=== PATIENT | male | born 1960 | race Caucasian/White ===

== ENCOUNTER 2019-06-24 17:21 | Emergency (ER) | payer BC, OTHER ==
[2019-06-24 17:32] VITALS: BP 122/59; PULSE 70
[2019-06-24] MEDS: Sodium Chloride 0.9% 10 ML Syringe FLUSH PRN ×2 (17:56→19:03)
[2019-06-24] MEDS ORDERED: Ondansetron 4 MG/2 ML SDV IVPUSH ONE (18:04)
[2019-06-24] MEDS ORDERED: Sodium Chloride 0.9% 1,000 ML IV SCH (18:15)
[2019-06-24] MEDS ORDERED: Diatrizoate Meglumine/Diatrizoate Sodium 37% 120 ML Bottle PO ONE (18:43)
[2019-06-24] MEDS ORDERED: Iopamidol 612 MG/ML 100 ML Bottle IVPUSH ONE (18:43)
--- NOTE | 2019-06-24 19:17 | EDM.PDOC ---
<Rob Salazar Jo - Last Filed: 06/24/19 19:26> ED HPI GENERAL MEDICAL PROBLEM - General Chief Complaint: Gastrointestinal Problem Stated Complaint: BOWEL ISSUES SENT BY [facility] Time Seen by Provider: 06/24/19 17:26 Source of Information: Reports: Patient, RN Notes Reviewed - History of Present Illness INITIAL COMMENTS - FREE TEXT/NARRATIVE: 59-year-old male was been sent here from [facility] for further evaluation of abdominal pain, bloating with concern for possible bowel obstruction or partial bowel obstruction. He states he became ill Saturday 3 days ago. Onset of abdominal pain, cramping and multiple episodes of watery diarrhea. Since that time he has had intermittent abdominal pain and cramping, no appetite, eating and drinking small amounts only. He feels like he is been bloated with abdominal distention, belching of gas and has been passing in his words "small amounts of gas occasionally" he had labs drawn at [facility] this afternoon and he had x-rays done at [facility]. Those x-rays are present on our PACs which I have reviewed and discussed with his provider at the [facility]. Showed a very large amount of gaseous distention left abdomen especially raising and supporting concern for possible bowel obstruction. Was suggested that he come here to the ED for further evaluation. On arrival to ED he is having mild continued cramping and discomfort. Nauseated at this time and has not been vomiting. There's been no chest pain, difficulty breathing, coughing, fever or chills. 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 That was around 7 years ago. He has had no prior abdominal surgeries. Abdomen Pain Score (Numeric/FACES): 2 - Related Data Allergies Allergy/AdvReac Type Severity Reaction Status Date / Time onion Allergy Indigestion Verified 06/24/19 17:32 Penicillins Allergy Other Verified 06/24/19 17:32 Home Meds: Home Meds Ascorbic Acid [Vitamin C] 1,000 mg PO DAILY 06/24/19 [History] Aspirin 81 mg PO DAILY 06/24/19 [History] Cholecalciferol (Vitamin D3) [Vitamin D3] 5,000 unit PO DAILY 06/24/19 [History] Dicyclomine [Bentyl] 20 mg PO Q6H PRN #5 tablet 06/24/19 [Rx] Multivit-Minerals/Herbal 121 [Urinozinc Prostate Formula Cap] 1 cap PO DAILY [History] Multivitamin [Multivitamins] 1 cap PO DAILY 06/24/19 [History] Past Medical History HEENT History: Reports: Impaired Vision Respiratory History: Reports: Sleep Apnea Genitourinary History: Reports: BPH Musculoskeletal History: Reports: Other (See Below) Other Musculoskeletal History: rib fx Neurological History: Reports: Vertigo - Infectious Disease History Infectious Disease History: Reports: Chicken Pox, Shingles - Past Surgical History HEENT Surgical History: Reports: Oral Surgery Cardiovascular Surgical History: Reports: Valve Replacement Social & Family History - Tobacco Use Smoking Status *Q: Never Smoker - Recreational Drug Use Recreational Drug Use: No ED ROS GENERAL - Review of Systems Review Of Systems: See Below Constitutional: Denies: Fever, Chills, Diaphoresis HEENT: Denies: Throat Pain Respiratory: Denies: Shortness of Breath, Pleuritic Chest Pain Cardiovascular: Denies: Chest Pain GI/Abdominal: Reports: Abdominal Pain, Diarrhea, Decreased Appetite, Nausea ( Mild occasional). Denies: Hematochezia, Melena, Vomiting Musculoskeletal: Denies: Back Pain Skin: Reports: No Symptoms Neurological: Reports: No Symptoms ED EXAM, GI/ABD - Physical Exam Exam: See Below Exam Limited By: No Limitations General Appearance: Alert, No Apparent Distress (At time of exam) Eyes: Bilateral: Normal Appearance Throat/Mouth: Normal Inspection, Normal Oropharynx Neck: Normal Inspection, Supple Respiratory/Chest: No Respiratory Distress, Lungs Clear, Normal Breath Sounds Cardiovascular: Regular Rate, Rhythm GI/Abdominal Exam: Distended (Moderate distention upper and midabdomen), Tender (There is diffuse tenderness of his abdomen more so mid and on the left, right lower abdomen nontender.). No: Guarding ( At time of exam no guarding or rebound), Rebound Extremities: Normal Inspection, Normal Range of Motion Neurological: Alert, Oriented, No Motor/Sensory Deficits Skin Exam: Warm, Dry, Normal Color Course - Vital Signs Last Recorded V/S: Last Vital Signs Temp 36.5 C 06/24/19 17:28 Pulse 70 06/24/19 17:28 Resp 19 06/24/19 17:28 BP 122/59 L 06/24/19 17:28 Pulse Ox 100 06/24/19 17:28 - Orders/Labs/Meds Orders: Active Orders 24 hr Category Date Time Status Peripheral IV Care [RC] . DIRECTED Care 06/24/19 17:52 Active Sodium Chloride 0.9% [Normal Saline] 1,000 ml Med 06/24/19 18:15 Active IV ONETIME Sodium Chloride 0.9% [Saline Flush] Med 06/24/19 17:50 Active 10 ml FLUSH ASDIRECTED PRN Peripheral IV Insertion Adult [OM.PC] Stat Oth 06/24/19 17:50 Ordered Medication Orders Sodium Chloride (Normal Saline) 1,000 mls @ 999 mls/hr IV ONETIME ROMANA Last Admin: 06/24/19 18:17 Dose: 999 mls/hr Sodium Chloride (Saline Flush) 10 ml FLUSH ASDIRECTED PRN PRN Reason: Keep Vein Open Last Admin: 06/24/19 19:03 Dose: 10 ml Admin: 06/24/19 17:56 Dose: 10 ml Labs: Laboratory Tests 06/24/19 Range/Units 15:00 C-Reactive Protein 1.0 (<1.0) mg/dL Lipase 131 (73-393) U/L Meds: Medications Generic Name Dose Route Start Last Admin Trade Name Freq PRN Reason Stop Dose Admin Sodium Chloride 1,000 mls @ 999 mls/hr 06/24/19 18:15 06/24/19 18:17 Normal Saline IV 999 mls/hr ONETIME ROMANA Administration Sodium Chloride 10 ml 06/24/19 17:50 06/24/19 19:03 Saline Flush FLUSH 10 ml ASDIRECTED PRN Administration Keep Vein Open Discontinued Medications Generic Name Dose Route Start Last Admin Trade Name Freq PRN Reason Stop Dose Admin Diatrizoate Meglum/Diatrizoate Sod 120 ml 06/24/19 18:43 06/24/19 19:02 Gastrografin 37% PO 06/24/19 18:44 120 ml ONETIME ONE Administration Dicyclomine HCl 20 mg 06/24/19 20:22 Bentyl PO 06/24/19 20:23 ONETIME ONE Iopamidol 100 ml 06/24/19 18:43 06/24/19 19:04 Isovue-300 (61%) IVPUSH 06/24/19 18:44 100 ml ONETIME ONE Administration Magnesium Citrate 210 ml 06/24/19 20:23 Citrate Of Magnesia PO 06/24/19 20:24 ONETIME ONE Metoclopramide HCl 10 mg 06/24/19 20:23 Reglan .XX 06/24/19 20:24 ONETIME ONE Metoclopramide HCl 10 mg 06/24/19 20:26 Reglan PO 06/24/19 20:27 ONETIME ONE Ondansetron HCl 4 mg 06/24/19 18:04 06/24/19 18:17 Zofran IVPUSH 06/24/19 18:05 4 mg ONETIME ONE Administration - Re-Assessments/Exams Free Text/Narrative Re-Assessment/Exam: 06/24/19 19:26 Change of shift, will transfer care to Dr Trammell. CT has been done, awaiting Radiology report. Departure - Departure Disposition: Home, Self-Care Clinical Impression: Constipation by delayed colonic transit, Acute dilatation of the colon syndrome - Discharge Information Prescriptions: Dicyclomine [Bentyl] 20 mg PO Q6H PRN #5 tablet PRN Reason: Abdominal cramps/diarrhea Instructions: Constipation, Adult, [id number] Referrals: Gabby Jerez PA-C [Primary Care Provider] - Forms: ED Department Discharge Additional Instructions: Evaluation the emergency room today in regards to obviously dilated abdomen which she reports is been going on for about 3 days. Turn from your provider in was that she may have a bowel obstruction. However you are having good bowel movements to cure on Saturday. You are still passing gas but not as normally as you should. Been somewhat afraid to eat due to a sense of fullness. A cyst x- ray of the abdomen shows a large amount of stool throughout the right colon and a large amount of air throughout the transverse colon across the upper abdomen and portions of most of the descending: The left hemiabdomen. A CT scan was done in the ED with oral and IV contrast and reveals basically the same thing. Appears to be a slightly narrowed area in the area of the descending colon which is holding up the gas in the rest of the bowel. The cause for this is unclear. It deserves further investigation. Unable to eat and drink it is my suggestion you stay on clear fluids such as Gatorade/Powerade, apple juice and clear fluids almost in preparation for colonoscopy. The contrast that you were given in the ED will likely cause her bowels to move a once or twice over the next 6-12 hours. In the morning I wish you to take 7 ounces of magnesium citrate by mouth with 6 ounces of juice of choice which would get the bowels working even further in a period of 2-3 hours. May use Bentyl 20 mg tablet every 6 hours if needed for relief of abdominal cramping pain. In the ED were given a tablet called Reglan 10 mg which is to promote bowel movement you to call [facility] and make an appointment to see Dr. Montez--surgeon Saturday. I discussed the case with her. These provide that information to the air crew has to provide you with an appointment for Saturday. She would prefer Saturday if available. Please phone [phone] tomorrow morning to arrange this appointment. Need to return to the ED if he develops severe abdominal pain or nausea and vomiting. Sepsis Event Note - Evaluation Sepsis Screening Result: No Definite Risk - Focused Exam Vital Signs: Vital Signs Temp Pulse Resp BP Pulse Ox 06/24/19 17:28 36.5 C 70 19 122/59 L 100 Date Exam was Performed: 06/24/19 Time Exam was Performed: 19:26 <Chauncey Trammell - Last Filed: 06/24/19 20:33> Past Medical History Gastrointestinal History: Reports: Other (See Below) (Patient reports he had a colonoscopy about 2 years ago and no abnormalities were identified. Of note the first time he went for the procedure he was found to be still stool-filled and the procedure was repeated a month later with aggressive bowel cleanse.) Course - Re-Assessments/Exams Free Text/Narrative Re-Assessment/Exam: 06/24/19 19:[address] Salazar as it is change of shift. She has just returned from CT suite and I am awaiting CT report. It appears that he is a large amount of stool throughout the cecum and ascending colon and a large amount of gas throat the transverse colon and most of the descending colon with air down to the rectal vault. The small bowel appears to fill well with contrast media with no sign of small bowel obstruction. Has a small hiatal hernia. Small cyst within the liver. Evidence of previous open heart surgery and valve replacement. Stomach is poorly visualized. Pancreas is poorly visualized. Initial contrast and ureters appear to be normal. Adrenal glands appear to be normal. 06/24/19 20:02 CT of the abdomen and pelvis has been over read by the radiologist. He agrees with gas in dilated colon on the transverse and left superior descending colon. There is increased stool throughout the right hemicolon. No significant stool is seen within the rectosigmoid region. Gas dilated colon stops at the mid descending level with other portions of the more distal colon appearing collapsed. Visualized lung bases show nothing acute. Small low density finding is noted within the right lobe of the liver measuring 1.2 cm which is most likely due to a small liver cyst. Gallbladder contains no calcified gallstones. Spleen appears normal adrenal gland show no nodules. Kidneys show symmetric and contrast enhancement. 2 cysts are noted within the right kidney. Largest cyst measures 1.6 cm. Left kidney appears to be within normal limits. Is within normal limits. Aorta shows no aneurysm. No retroperitoneal adenopathy or mesenteric abdomen maladies are seen. Appendix is visualized and is normal in size. No free fluid or inflammatory type changes appreciated. 06/24/19 20:15: I have discussed the findings with --qualification engineer surgeon and she agrees that if he is still passing flatus and able to eat and drink and she would allow him to go home. Stay on clear fluid diet and see her in the clinic on Saturday morning which is 2 days time. Us this with the patient and he is willing to pursue this avenue of treatment. He does have some localized tenderness the left hemiabdomen on my examination but no rebound or guarding. He is likely to have further bowel movements from the oral contrast given for CT tonight and I'm going to send him home with magnesium citrate to take 7 ounces tomorrow morning to provide further bowel cleanse. I'm going to give him Reglan 10 mg tablet by mouth now to promote bowel motility. He will take Bentyl 20 mg every 6 hours if needed for abdominal cramping pain. He will otherwise call and make an appoint to see Dr. Oly Bowden tomorrow morning. He will of course return to the ED if he starts vomiting for the pain in his abdomen worsens. Departure - Departure Time of Disposition: 20:24 Condition: Fair - Discharge Information *PRESCRIPTION DRUG MONITORING PROGRAM REVIEWED*: Not Applicable *COPY OF PRESCRIPTION DRUG MONITORING REPORT IN PATIENT GILL: Not Applicable Sepsis Event Note - Focused Exam Date Exam was Performed: 06/24/19 Time Exam was Performed: 20:31
--- NOTE | 2019-06-24 19:57 | CT ---
CT abdomen and pelvis Technique: Multiple axial sections were obtained from above the dome of the diaphragm inferiorly to the pubic symphysis. Intravenous and oral contrast was utilized. Delayed images were also obtained through the bladder. Findings: Gas dilated colon is noted. Increased stool is noted within the right colon. No significant stool is seen within the rectosigmoid region. Gas dilated colon stops at the mid descending level with other portions of the more distal colon appearing collapsed. Visualized lung bases show nothing acute. Small low-density finding is noted within the right lobe of the liver measuring 1.2 cm which is most likely due to small liver cyst. Gallbladder contains no calcified gallstones. Spleen appears normal. Adrenal glands show no nodule. Kidneys show symmetric contrast enhancement. 2 cysts are noted within the right kidney. Largest cyst measures 1.6 cm. Left kidney appears within normal limits. Pancreas is within normal limits. Aorta shows no aneurysm. No retroperitoneal adenopathy or mesenteric abnormalities are seen. Appendix is visualized and is normal in size. No free fluid or inflammatory type change is seen. Delayed images shows a small amount of contrast within the bladder Bone window settings were reviewed which appear within normal limits for the patient's age. Impression: 1. Increased stool within dilated right colon. Other portions of the transverse and left colon show dilatation with air. There is abrupt termination of colonic dilatation within the mid descending colon with more distal portions of colon being collapsed. No obstructing lesion is seen. Colon findings are most likely from prominent colonic ileus. 2. Other findings believed to be incidental as noted above. No other acute finding is appreciated. Diagnostic code #3 Note: Endoscopy could be considered to completely exclude nonvisualized sigmoid or distal descending colon lesion.
[2019-06-24] MEDS ORDERED: Dicyclomine 10 MG Cap PO ONE (20:22)
[2019-06-24] MEDS ORDERED: Magnesium Citrate Solution 296 ML Bottle PO ONE (20:23)
[2019-06-24] MEDS ORDERED: Metoclopramide 10 MG/2 ML SDV ONE (20:23)
[2019-06-24] MEDS ORDERED: Metoclopramide 10 MG Tab PO ONE (20:26)
== END 2019-06-24 20:40 | disposition home or self-care (01) ==
LOC: JD.ED 17:21
DX: K59.39 Other megacolon (principal); K59.01 Slow transit constipation; Z79.82 Long term (current) use of aspirin; Z98.890 Other specified postprocedural states; Z88.0 Allergy status to penicillin; Z91.018 Allergy to other foods
CPT/HCPCS: 36415; 74177; 83690; 86140; 96361; 96374; 99284; A9270; J2405; J7030; Q9963; Q9967

== ENCOUNTER 2022-06-23 02:29 | Emergency (ER) | payer BC ==
[2022-06-23 02:48] VITALS: BP 109/62; PULSE 81
[2022-06-23 03:59] LABS: CORONAVIRUS COVID-19 NAA NEGATIVE (NEGATIVE)
[2022-06-23] MEDS ORDERED: Dexamethasone 10 MG/ML SDV IM STA (04:48)
[2022-06-23] MEDS ORDERED: Azithromycin 250 MG Tab PO ONE (05:20)
[2022-06-23] MEDS ORDERED: Azithromycin 250 MG Tab PO SCH (09:00)
== END 2022-06-23 05:35 | disposition home or self-care (01) ==
LOC: JD.ED 02:29
DX: K12.2 Cellulitis and abscess of mouth (principal); R07.89 Other chest pain; J02.9 Acute pharyngitis, unspecified; Z88.0 Allergy status to penicillin; Z91.018 Allergy to other foods; Z79.82 Long term (current) use of aspirin; Z20.822 Contact with and (suspected) exposure to COVID-19
CPT/HCPCS: 0241U; 71045; 93005; 96372; 99285; A9270; J1100; 93010; 99284